=== PATIENT | female | born 1960 | race Caucasian/White ===

== ENCOUNTER 2024-10-17 09:54 | Inpatient (IN) | payer BC ==
[2024-10-17] MEDS ORDERED: Sodium Chloride 0.9% 10 ML Syringe FLUSH PRN (10:13)
[2024-10-17] MEDS: Sodium Chloride 0.9% 1,000 ML IV ONE (10:28)
[2024-10-17 10:29] LABS: BASOPHILS ABSOLUTE AUTO 0.01 10^3/uL (0.00-0.10); BASOPHILS PERCENT AUTO 0.3 % (0.0-1.0); EOSINOPHILS ABSOLUTE AUTO 0.02 10^3/uL (0.10-0.30); EOSINOPHILS PERCENT AUTO 0.6 % (1.0-3.0); HEMATOCRIT 42.9 % (37.0-47.0); HEMOGLOBIN 14.8 g/dL (12.0-16.0); IMMATURE GRAN ABSOLUTE AUTO 0.01 10^3/uL (0.00-0.04); IMMATURE GRAN PERCENT AUTO 0.3 % (0.0-0.4); LYMPHOCYTES ABSOLUTE AUTO 0.89 10^3/uL (1.00-4.00); LYMPHOCYTES PERCENT AUTO 25.4 % (20.0-40.0); MEAN CORPUSCULAR HEMOGLOBIN 29.2 pg (27.0-31.0); MEAN CORPUSCULAR HGB CONC 34.5 g/dL (32.0-36.0); MEAN CORPUSCULAR VOLUME 84.8 fL (82.0-92.0); MEAN PLATELET VOLUME 9.5 fL (7.4-10.4); MONOCYTES ABSOLUTE AUTO 0.44 10^3/uL (0.10-0.80); MONOCYTES PERCENT AUTO 12.6 % (2.0-8.0); NEUTROPHILS ABSOLUTE AUTO 2.13 10^3/uL (2.50-7.00); NEUTROPHILS PERCENT AUTO 60.8 % (50.0-70.0); PLATELET COUNT,PLT 194 10^3/uL (150-400); RED BLOOD CELL COUNT 5.06 10^6/uL (3.80-5.50); RED CELL DISTRIBUTION WIDTH 12.1 % (11.5-14.5)
[2024-10-17 10:48] LABS: ALANINE AMINOTRANSFERASE,ALT 32 U/L (14-63); ALBUMIN 3.63 g/dL (3.40-5.00); ALKALINE PHOSPHATASE 71 U/L (46-116); ANION GAP 14.4 mmol/L (5-15); ASPARTATE AMNIOTRANSFERASE,AST 37 U/L (15-37); BILIRUBIN TOTAL 0.4 mg/dL (0.2-1.0); BLOOD UREA NITROGEN,BUN 26 mg/dL (7-18); CALCIUM 9.1 mg/dL (8.7-10.3); CHLORIDE,CL 103 mmol/L (98-107); CREATININE 1.07 mg/dL (0.51-1.17); GLUCOSE RANDOM 114 mg/dL (70-140); POTASSIUM,K 3.4 mmol/L (3.5-5.1); PROTEIN TOTAL,TP 7.1 g/dL (6.4-8.2); SODIUM,NA 141 mmol/L (136-145)
[2024-10-17 10:50] LABS: ESTIMATED GFR 59 mL/min (>=60)
[2024-10-17 11:02] LABS: B-TYPE NATRIURETIC PEPTIDE,BNP 7 pg/mL (0-100)
[2024-10-17] MEDS: NS with KCl 40mEq 1,000 ML IV SCH (11:54)
[2024-10-17] MEDS ORDERED: Acetaminophen/HYDROcodone 325-5 MG Tab PO PRN (13:17)
[2024-10-17] MEDS ORDERED: Ondansetron 4 MG/2 ML SDV IV PRN (13:17)
[2024-10-17] MEDS ORDERED: Albuterol/Ipratropium 3.0-0.5 MG/3 ML Neb Soln NEB PRN (13:17)
[2024-10-17] MEDS ORDERED: Sodium Chloride 0.9% 1,000 ML IV SCH (13:30)
[2024-10-17] MEDS: Albuterol 0.083% 2.5 MG/3 ML Neb Soln NEB SCH (14:39)
[2024-10-17] MEDS: Oseltamivir 75 MG Cap PO SCH (14:39)
[2024-10-17] MEDS: Acetaminophen 325 MG Tab PO PRN (14:46)
[2024-10-18 07:36] LABS: HEMATOCRIT 38.6 % (37.0-47.0); HEMOGLOBIN 13.5 g/dL (12.0-16.0); MEAN CORPUSCULAR HEMOGLOBIN 29.7 pg (27.0-31.0); MEAN PLATELET VOLUME 9.4 fL (7.4-10.4); PLATELET COUNT,PLT 183 10^3/uL (150-400); RED BLOOD CELL COUNT 4.54 10^6/uL (3.80-5.50); RED CELL DISTRIBUTION WIDTH 12.1 % (11.5-14.5); WHITE BLOOD CELL COUNT,WBC 3.15 10^3/uL (5.00-10.00)
[2024-10-18 08:06] LABS: ALBUMIN 3.28 g/dL (3.40-5.00); BILIRUBIN TOTAL 0.5 mg/dL (0.2-1.0); CALCIUM 8.9 mg/dL (8.7-10.3); CARBON DIOXIDE,CO2 24.7 mmol/L (21.0-32.0); CREATININE 0.83 mg/dL (0.51-1.17); EST CRCL DRUG DOSING (CG) 61.13 mL/min; POTASSIUM,K 3.7 mmol/L (3.5-5.1); PROTEIN TOTAL,TP 6.4 g/dL (6.4-8.2)
[2024-10-18] MEDS ORDERED: Non-Formulary Medication 1 Each (Losartan/Hydrochlorothiazide [Hyzaar 100-12.5 Tablet] 1 E PO SCH (09:00)
[2024-10-18] MEDS: Hydrochlorothiazide 12.5 MG Cap PO SCH (09:33)
[2024-10-18] MEDS: Losartan 50 MG Tab PO SCH (09:33)
[2024-10-18] MEDS: Enoxaparin 40 MG/0.4 ML Syringe SUBCUT SCH (09:38)
[2024-10-19] MEDS ORDERED: Venlafaxine 37.5 MG Cap.ER PO SCH (09:00)
== END 2024-10-18 10:45 | disposition home or self-care (01) | DRG 113 ==
LOC: SUPCPDRO 09:54 → KA.ED 09:54 → KA.MS 13:02
PROVIDERS: ADMIT Internal Medicine; ATTEND Internal Medicine
DX: J10.1 Influenza due to other identified influenza virus with other respiratory manifestations (principal); Z99.81 Dependence on supplemental oxygen; I35.8 Other nonrheumatic aortic valve disorders; I10 Essential (primary) hypertension; J32.9 Chronic sinusitis, unspecified; E78.00 Pure hypercholesterolemia, unspecified; F41.9 Anxiety disorder, unspecified; F32.A Depression, unspecified; E66.9 Obesity, unspecified; F15.90 Other stimulant use, unspecified, uncomplicated; E86.0 Dehydration; E87.6 Hypokalemia; Z79.899 Other long term (current) drug therapy; Z86.16 Personal history of COVID-19; Z68.33 Body mass index [BMI] 33.0-33.9, adult
CPT/HCPCS: 36415; 71045; 80053; 83880; 84484; 85025; 85027; 85379; 87040; 87428-QW; 94640; 96361; 96365; 99285-25; A9270-GY; J3480; J7030; J7613-GY; Q3014